=== PATIENT | female | born 2000 | race Caucasian/White ===

== ENCOUNTER 2023-09-28 | Outpatient (REF) | payer MEDICAID, SELFPAY ==
[2023-09-29 15:03] LABS: CT PCR NOT DETECTED (Not Detect.); NG PCR NOT DETECTED (Not Detect.)
[2023-09-30 11:02] LABS: BV Int Neg Control Negative (Negative); BV Int Pos Control Positive (Positive)
== END 2023-09-28 00:01 | disposition home or self-care (01) ==
LOC: HO.HHCLNP
PROVIDERS: Visit Provider Nurse Practitioner Primary Care
DX: N89.9 Noninflammatory disorder of vagina, unspecified (principal)
CPT/HCPCS: 0353U; 87480; 87510; 87660

== ENCOUNTER 2023-10-04 16:15 | Outpatient (REF) | payer MEDICAID, SELFPAY ==
[2023-10-05 14:23] LABS: BV Int Neg Control Negative (Negative); BV Int Pos Control Positive (Positive)
== END 2023-10-04 16:16 | disposition home or self-care (01) ==
LOC: HO.CHCLNP 16:15
PROVIDERS: Visit Provider Advanced Practice Midwife
DX: N89.8 Other specified noninflammatory disorders of vagina (principal)
CPT/HCPCS: 87480; 87510; 87660